=== PATIENT | female | born 1960 | race Caucasian/White ===

== ENCOUNTER 2018-11-29 06:45 | Day surgery (SDC) | payer OTHER ==
[~2018-11-29 06:45] MED LIST: Bupivacaine 0.5% 30 ML SDV ONE
[2018-11-29] MEDS ORDERED: Ondansetron 4 MG/2 ML SDV IV ONE (06:46)
[2018-11-29] MEDS ORDERED: Midazolam 1 MG/ML 2 ML SDV IV ONE (06:46)
[2018-11-29] MEDS ORDERED: fentaNYL 100 MCG/2 ML SDV IV ONE (06:46)
[2018-11-29] MEDS ORDERED: Dexamethasone 4 MG/ML SDV IV ONE (06:46)
[2018-11-29] MEDS ORDERED: Ketorolac 30 MG/ML SDV IVPUSH ONE (06:46)
[2018-11-29] MEDS ORDERED: Propofol 200 MG/20 ML SDV IV ONE (06:46)
[2018-11-29] MEDS ORDERED: ceFAZolin 1 GM in Premix Bag 1 BAG IV ONE (07:00)
[2018-11-29] MEDS ORDERED: Sodium Chloride 0.9% 10 ML Syringe FLUSH PRN ×2 (07:00)
[2018-11-29] MEDS: Lactated Ringers 1,000 ML IV SCH ×2 (07:52→11:51)
[2018-11-29] MEDS ORDERED: Bupivacaine 0.5% 30 ML SDV INJECT ONE ×2 (08:29→09:34)
[2018-11-29] MEDS ORDERED: Acetaminophen/oxyCODONE 325-5 MG Tab PO PRN (09:55)
--- NOTE | 2018-11-29 09:59 | PCM.OPNOTE ---
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 Well padded compression dressing applied.
[2018-11-29] MEDS ORDERED: Meclizine 12.5 MG Tab PO ONE (12:24)
--- NOTE | 2018-11-29 13:02 | OR ---
DATE: 11/29/2018 PREOPERATIVE DIAGNOSIS: Right foot first metatarsophalangeal joint arthritis/hallux limitus. POSTOPERATIVE DIAGNOSES: Right foot first metatarsophalangeal joint arthritis/hallux limitus with possible gouty arthritis. PROCEDURE PERFORMED: Right foot first metatarsophalangeal joint cheilectomy. ANESTHESIA: Local MAC with preoperative local block of 10 mL 1:1 mixture of 1% lidocaine plain and 0.5% Marcaine plain. TOURNIQUET TIME: Pneumatic ankle tourniquet, 56 minutes. ESTIMATED BLOOD LOSS: Minimal. SPECIMEN REMOVED: Right great toe joint tissue. COMPLICATIONS: None. INDICATIONS: Angelica is a 57-year-old female who presents with a painful bump on her right great toe joint. She states that this has been going on for a few years now and gradually worsening. The pain is really localized to the top of that joint at the bump. She states that whenever she bumps this area, sends a nerve-type shooting pain to the toe. She also gets pain with pressure to that area with shoe gear. 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 She does wear a good hard-soled shoe. She has tried multiple different shoes and padding with no relief. X-rays of the right foot reveal first metatarsophalangeal joint with periarticular spurring, much worse at the dorsal aspect of the first metatarsal head where there is a large dorsal seg. There is some joint space narrowing and subchondral sclerosis. No signs of fracture. Her first metatarsal has a good length, and it is not dorsiflexed on lateral. She does have a pes cavus foot type. The patient voiced good understanding of the proposed procedure and possible complications and elects to have surgery at this time. DESCRIPTION OF PROCEDURE: The patient was taken to the operating room lying in the supine position. After adequate anesthesia induction as described above, the right foot was prepped and draped in the usual sterile fashion. Pneumatic ankle tourniquet was inflated to 225 mmHg. Attention was then directed to the right foot at the first metatarsophalangeal joint dorsal aspect, where an approximately 5 cm linear incision was made overlying the joint. Sharp and blunt dissection was made down to the joint capsule with care to retract all neurovascular bundles. A linear capsulotomy was made, and the capsule was reflected to expose the first metatarsophalangeal joint. A large spur was noted at the dorsal aspect of the first metatarsal head that actually had some erosive changes to the spur, almost looked like a gouty arthritis to that joint. At the joint capsule, there was some whitish substance, almost looking like gouty tophi. I excised a piece of the capsule with the tophi, and I am sending it to the lab to check for gout. There is also some spurring at the medial aspect and lateral aspect. At the lateral aspect, there was also a large loose bone fragment that was completely excised. It was noted that greater than 50% of the joint had good articular cartilage. It was mostly the center and posterior joint. The anterior aspect of the joint was denuded of cartilage approximately 30%. A sagittal saw was used to remove all of the periarticular spurring starting at the medial aspect, and then a cheilectomy was performed at the dorsal aspect as well. A rongeur was used at the lateral aspect to get that spurring. The rongeur was used to smooth all edges. Fluoroscopy was used to verify adequate resection of the bone spurs. The joint was put in motion, and there was good fluid range of motion without any crepitus, and the range of motion had increased a significant amount with dorsiflexion. The area was then irrigated with copious amounts of sterile saline. Before that, a 0.062 inch K- wire was used to fenestrate the areas that there was some subchondral bone without any cartilage. This was done at both the first metatarsal head and base of the proximal phalanx. A rongeur was also used to remove the spurring at the proximal phalanx, and a rasp was used to smooth the edges. The area was irrigated with copious amounts of sterile saline. Deep closure was completed with 0 Vicryl, and skin closure was completed with 4-0 nylon. The area was dressed with Xeroform to the incision site, fluffs, Webril, and Stephon wrap. The patient was placed in a postoperative shoe. She tolerated anesthesia well and was transferred to recovery with vital signs stable and vascular status intact to the right foot as noted by immediate hyperemia upon deflation of the ankle tourniquet. She was then discharged home when she met hospital discharge requirements. [facility] /[id number]
== END 2018-11-29 12:50 | disposition home or self-care (01) ==
LOC: DL.SDS 06:45
PROVIDERS: ATTEND Podiatrist
DX: M20.5X1 Other deformities of toe(s) (acquired), right foot (principal); M77.51 Other enthesopathy of right foot and ankle; M19.071 Primary osteoarthritis, right ankle and foot; I10 Essential (primary) hypertension; E78.5 Hyperlipidemia, unspecified; K21.9 Gastro-esophageal reflux disease without esophagitis; K44.9 Diaphragmatic hernia without obstruction or gangrene; G43.909 Migraine, unspecified, not intractable, without status migrainosus
CPT/HCPCS: 28291; A9270; J0690; J1100; J1885; J2250; J2405; J2704; J3010; J3490; J7120